=== PATIENT | female | born 1970 ===

== ENCOUNTER 2021-11-01 10:28 | Emergency (ER) | payer OTHER ==
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
--- NOTE | 2021-11-01 14:20 | XRay Report ---
CHEST 2 VIEWS INDICATION / CLINICAL INFORMATION: pain. COMPARISON: None available. FINDINGS: SUPPORT DEVICES: None. HEART / MEDIASTINUM: No significant abnormality. LUNGS / PLEURA: No significant pulmonary or pleural abnormality. No pneumothorax. ADDITIONAL FINDINGS: No significant additional findings. IMPRESSION: 1. No acute findings. Signer Name: Diego Guerrero MD Signed: 11/01/2021 2:16 PM Workstation Name: [id number]
[2021-11-01] MEDS: IBUPROFEN 800 MG TAB PO ONE ×2 (14:29→14:48)
[2021-11-01 14:59] VITALS: BP 180/100
== END 2021-11-01 15:00 | disposition home or self-care (01) ==
LOC: ED 10:28
DX: S29.011A Strain of muscle and tendon of front wall of thorax, initial encounter (principal); I10 Essential (primary) hypertension; Z79.899 Other long term (current) drug therapy; V87.7XXA Person injured in collision between other specified motor vehicles (traffic), initial encounter; Y93.89 Activity, other specified; Y92.488 Other paved roadways as the place of occurrence of the external cause; Y99.8 Other external cause status
CPT/HCPCS: 71046; 99283